=== PATIENT | female | born 1985 | race Caucasian/White ===

== ENCOUNTER 2022-07-02 18:15 | Outpatient (CLI) | payer BC, SELFPAY | END 2022-07-02 18:16 | disposition home or self-care (01) | LOC: LKVREF 07-05 10:56 | PROVIDERS: PCP Family Medicine; Visit Provider Registered Nurse | DX: R30.0 Dysuria (principal); N39.0 Urinary tract infection, site not specified | CPT/HCPCS: 87086; 87186 ==

== ENCOUNTER 2023-11-07 17:50 | Outpatient (CLI) | payer BC, SELFPAY ==
[2023-11-07 22:57] LABS: Chlamydia DNA Amplified* NOT DETECTED (No Detected); GC DNA Amplified* NOT DETECTED (No Detected)
== END 2023-11-07 17:51 | disposition home or self-care (01) ==
LOC: LKVREF 17:50
PROVIDERS: PCP Family Medicine; Visit Provider Physician Assistant
DX: Z11.3 Encounter for screening for infections with a predominantly sexual mode of transmission (principal)
CPT/HCPCS: 87491; 87591